=== PATIENT | female | born 1980 | race Caucasian/White ===

== ENCOUNTER → 2017-03-08 | Outpatient (CLI) | payer OTHER ==
[~2017-03-08] MED LIST: LEVO50TA6; PREN1TAB29
== END | disposition home or self-care (01) ==
LOC: C.PATHSPEC 13:57
PROVIDERS: ATTEND Plastic Surgery
DX: D22.9 Melanocytic nevi, unspecified (principal)

== ENCOUNTER → 2018-05-29 | Outpatient (CLI) | payer OTHER | END | disposition home or self-care (01) | LOC: C.LABSPEC 12:32 | PROVIDERS: ATTEND Obstetrics & Gynecology | DX: O09.521 Supervision of elderly multigravida, first trimester (principal); Z3A.00 Weeks of gestation of pregnancy not specified ==

== ENCOUNTER → 2018-06-03 | Outpatient (CLI) | payer OTHER | END | disposition home or self-care (01) | LOC: C.PAPS 14:42 | PROVIDERS: ATTEND Obstetrics & Gynecology | DX: O09.529 Supervision of elderly multigravida, unspecified trimester (principal); Z3A.00 Weeks of gestation of pregnancy not specified ==

== ENCOUNTER → 2018-06-03 | Outpatient (CLI) | payer OTHER | END | disposition home or self-care (01) | LOC: C.LAB1850 10:57 | PROVIDERS: ATTEND Obstetrics & Gynecology | DX: O99.281 Endocrine, nutritional and metabolic diseases complicating pregnancy, first trimester (principal); E03.9 Hypothyroidism, unspecified; O09.521 Supervision of elderly multigravida, first trimester; Z20.828 Contact with and (suspected) exposure to other viral communicable diseases; Z3A.00 Weeks of gestation of pregnancy not specified ==

== ENCOUNTER 2019-01-10 03:51 | Inpatient (IN) ==
[2019-01-10] MEDS ORDERED: DIPHTHERIA/TETANUS/PERTUSSIS 0.5 ML SYR/VIAL IM ONE (04:28)
[2019-01-10] MEDS ORDERED: BENZOCAINE 20% AER SPR 82.5 GM CAN EXT PRN (04:28)
[2019-01-10] MEDS ORDERED: LACTATED RINGER'S 1,000 ML IV PRN (04:28)
[2019-01-10] MEDS ORDERED: SUPERCREAM 0.870% 15 GM JAR EXT PRN (04:28)
[2019-01-10] MEDS ORDERED: OXYTOCIN 30 UNITS/500 ML BAG IV PRN ×2 (04:28)
[2019-01-10] MEDS ORDERED: ACETAMINOPHEN 325 MG TAB PO PRN (04:28)
[2019-01-10] MEDS ORDERED: HYDROCORTISONE ACETATE 25 MG SUPP PR PRN (04:28)
[2019-01-10] MEDS ORDERED: LACTATED RINGER'S 1,000 ML IV SCH (04:30)
[2019-01-10] MEDS ORDERED: OXYTOCIN 30 UNITS/500ML NSS ONE (04:36)
[2019-01-10 05:06] LABS: Hematocrit (blood only) 38.5 % (37-47); Hemoglobin 13.3 g/dL (12.0-16.0); Mean Corpuscular Volume 95.5 fL (80-100); Mean Platelet Volume 10.9 fL (7.4-10.4); Platelet Count 127 K/uL (130-400); RDW Coefficient of Variation 13.2 % (11.5-14.5); RDW Standard Deviation 46.1 fL (36.4-46.3); Red Blood Count 4.03 M/uL (4.2-5.4); White Blood Count 11.67 K/uL (4.8-10.8)
[2019-01-10] MEDS: IBUPROFEN 600 MG TAB PO PRN ×2 (05:11→15:56)
[2019-01-10 05:25] LABS: Mean Corpuscular Hgb Conc 34.5 g/dL (32-36)
[2019-01-10] MEDS: PRENATAL VITAMIN 1 TAB PO SCH (07:47)
[2019-01-10] MEDS: DOCUSATE SODIUM 100 MG CAP PO SCH ×2 (07:47→20:49)
[2019-01-11 06:33] LABS: Hematocrit (blood only) 36.4 % (37-47); Hemoglobin 12.5 g/dL (12.0-16.0)
--- NOTE | 2019-01-11 07:29 | Obstetrical Progress Note ---
Date of Service January 11, 2019 Assessment & Plan (1) Status post vaginal delivery: Patient is a 38 year old PPD 1 s/p -Vital signs WNL bp 119/81 T36.4, -Hemoglobin is 12.5 down from 13.3 on admission. no si/sx of anemia. -Pt is doing clinically well -Continue to encourage ambulation as tolerated, Monitor and control pain with motrin prn, Continue diet as tolerated. -Continue to support and encourage breast feeding -Routine care Supervising Physician Co-Signing Physician Notes Resident Physician Supervision Note: I interviewed and examined the patient. Discussed with Dr. Britt and agree with findings and plan as documented in the note. Any exceptions or clarifications are listed here: doing well. . deloris po, voiding, ambul without problem. bleeding slowing. ff 2 down, nt. routine care. Documented By: Clarisa Crabtree MD, FACOG Subjective Pt laying in bed cuddling with baby, no complaints overnight.Patient is tolerating her diet, ambulating, passing gas and voiding, still no bm. Reports moderate lochia. Denies H/A, chest pain, palpitations and uti syx. No concerns at this time pain is well controlled Physical Exam Vital Signs (Past 24 Hours): Last Vital Signs Temp 36.4 C L 01/11/19 05:10 Pulse 62 01/11/19 05:10 Resp 16 01/11/19 05:10 BP 119/81 01/11/19 05:10 Pulse Ox 98 01/11/19 05:10 Constitutional: WD/WN, vitals as above Eyes: normal visual gonzalez by confrontation Respiratory: normal respiratory effort, lungs clear to auscultation Cardiovascular: RRR, no murmur, no edema Extremities: no calf tenderness Gastrointestinal (Abdomen): normal bowel sounds, soft, nontender, no hepatosplenomegaly (Uterus firm and 2 fingers below umbilicus) Skin: no rashes, warm and dry Results & Data Laboratory Results 01/11/19 Range/Units 05:51 Hgb 12.5 (12.0-16.0) g/dL Hct 36.4 L (37-47) % Medications Administered Current Inpatient Medications Acetaminophen (Tylenol) 650 mg PO Q6H PRN PRN Reason: Pain/MIRANDA/Fever Stop: 02/09/19 04:27 Benzocaine (Dermoplast Pain Relieving Proctor) 1 appln EXT PRN PRN PRN Reason: Perineal Discomfort Stop: 02/09/19 04:27 Last Admin: 01/10/19 08:48 Dose: 82.5 appln Documented by: Bisacodyl (Dulcolax) 5 mg PO 1999 [facility] Stop: 01/11/19 20:01 Bisacodyl (Dulcolax) 10 mg DE DAILY PRN PRN Reason: No BM on 2nd post- day Stop: 01/12/19 23:59 Cocaine HCl (Supercream 0.870%) 1 gm EXT BID PRN PRN Reason: Hemorrhoidal Inflammation Stop: 01/24/19 04:27 Docusate Sodium (Colace) 100 mg PO BID [facility] Stop: 02/09/19 08:59 Last Admin: 01/10/19 20:49 Dose: 100 mg Documented by: Hydrocortisone (Anusol Hc) 25 mg DE BID PRN PRN Reason: Hemorrhoidal Inflammation Stop: 02/09/19 04:27 Lactated Ringer's (Lr) 1,000 mls @ 999 mls/hr IV .Q1H1M PRN PRN Reason: (Pre-Anesthesia) Stop: 02/09/19 04:27 Oxytocin (Pitocin) 30 units in 500 mls @ 333.333 mls/hr IV .Q1H30M PRN; Protocol PRN Reason: Bleeding Control Stop: 02/09/19 04:27 Last Admin: 01/10/19 04:05 Dose: 59.94 units/hr, 999 mls/hr Documented by: Oxytocin (Pitocin) 30 units in 500 mls @ 333.333 mls/hr IV .Q1H30M PRN; Protocol PRN Reason: BLEEDING CONTROL Stop: 02/09/19 04:27 Lactated Ringer's (Lr) 1,000 mls @ 125 mls/hr IV .Q8H [facility] Stop: 01/12/19 04:29 Ibuprofen (Motrin) 600 mg PO Q4H PRN PRN Reason: Pain/MIRANDA/Cramping/Fever Stop: 02/09/19 04:27 Last Admin: 01/10/19 15:56 Dose: 600 mg Documented by: Prenat Multivit/[place]/Iron/Folic Ac ( Vitamin) 1 tab PO QAM [facility] Stop: 02/09/19 08:59 Last Admin: 01/10/19 07:47 Dose: 1 tab Documented by: Resident Activity Tracking Resident Involvement: Resident Care Provided Care Provided: Adult Hospital Medicine
[2019-01-11] MEDS: DOCUSATE SODIUM 100 MG CAP PO SCH ×2 (09:30→20:58)
[2019-01-11] MEDS: PRENATAL VITAMIN 1 TAB PO SCH (09:30)
[2019-01-11] MEDS: IBUPROFEN 600 MG TAB PO PRN ×2 (16:10→20:58)
[2019-01-11] MEDS ORDERED: BISACODYL 5 MG TABEC PO SCH (20:00)
[2019-01-12] MEDS ORDERED: BISACODYL 10 MG SUPP PR PRN (06:00)
--- NOTE | 2019-01-12 08:18 | Obstetrical Progress Note ---
Date of Service January 12, 2019 Assessment & Plan (1) Status post vaginal delivery: - doing well - ready for d/c - instructions given - f/u in 6 weeks Subjective Ambulation: ambulating normally Voiding: no voiding problems Feeding Type:: bottle feeding Physical Exam Vital Signs (Past 24 Hours) Last Vital Signs Temp 36.5 C 01/11/19 23:45 Pulse 57 L 01/11/19 23:45 Resp 18 01/11/19 23:45 BP 136/76 01/11/19 23:45 Pulse Ox 99 01/11/19 23:45 Gastrointestinal (Abdomen) fundus firm at umbilicus Musculoskeletal Negative deep calf tenderness
[2019-01-12] MEDS: IBUPROFEN 600 MG TAB PO PRN (08:28)
[2019-01-12] MEDS: PRENATAL VITAMIN 1 TAB PO SCH (08:28)
[2019-01-12] MEDS: DOCUSATE SODIUM 100 MG CAP PO SCH (08:28)
--- NOTE | 2019-01-20 11:01 | Delivery Summary ---
DATE OF OPERATION: 01/10/2019 PROCEDURE: Normal spontaneous vaginal delivery. SURGEON: Maximiliano Stone MD PREOPERATIVE DIAGNOSES: 1. Single intrauterine at 39 weeks 2 days gestational age. 2. Advanced maternal age. 3. Hypothyroidism. 4. Labor. POSTOPERATIVE DIAGNOSES: 1. Single intrauterine at 39 weeks 2 days gestational age. 2. Advanced maternal age. 3. Hypothyroidism. 4. Labor. 5. Status post delivery. ESTIMATED BLOOD LOSS: 200 mL. DRAINS: None. FLUIDS: Continuous lactated ringer. COMPLICATIONS: None. FINDINGS: Viable with weight pending and Apgars of 8 and 9 at 1 and 5 minutes respectively. INDICATIONS: Ms. Urbina is a 38-year-old G3, P2-0-0-2 admitted at 39 weeks and 2 days gestational age in active labor with spontaneous rupture of membranes. At presentation, the patient was noted to be complete-complete, +2 with a desire to push. DESCRIPTION OF PROCEDURE: The patient progressed to 10 cm dilated, 100% effaced, positive 2-3 station, pushed over intact perineum without anesthesia and delivered a viable with weight and Apgars as noted above. Head of the delivered in GE position and rest into right transverse. No nuchal cord was noted. The body and shoulders quickly followed. The was noted to be vigorous soon after delivery. A 1-minute delayed cord clamping was initiated, which the cord was doubly clamped and cut and the was left on the maternal abdomen. Cord blood was then obtained. Attention was then turned to delivery of the placenta which was delivered intact with 3-vessel cord with gentle cord traction. Attention was then turned to the perineum, cervix and vagina for inspection. There was noted to be a small second-degree laceration which was repaired with a traditional crown stitch. Needle, sponge and instrument counts were correct at the completion of the case. Both mother and were stable in the immediate post-. I attest to the content of the Intraoperative Record and any orders documented therein. Any exception s are noted below.
== END 2019-01-12 16:55 | disposition home or self-care (01) | DRG 807 ==
LOC: OPB 03:51 → 4S1 03:53 → 4S2 07:26